=== PATIENT | male | born 1965 | race Caucasian/White ===

== ENCOUNTER 2018-01-02 04:43 | Inpatient (IN) | payer MEDICAID ==
[~2018-01-02] VITALS: Ht 172.7 cm; Wt 64.4 kg
[~2018-01-02 04:43] MED LIST: BISA10SU8 PO; FENT1PAT5 TD; OXYC-128 PO; PANT40SU PO
--- NOTE | 2018-01-02 07:30 | NUR ---
PT C/O OF COLOSTOMY BAG MALFUNCTION. PT DENIES ABD PAIN. -N/V. REPORT RECEIVED FROM ADITHYA BLANCO.
[2018-01-02] MEDS ORDERED: VANCOMYCIN 1 GM in IV D5W 250 ML IV ONE (08:30)
[2018-01-02] MEDS ORDERED: IV NS 0.9% 1,000 ML BAG IV ONE (08:30)
[2018-01-02] MEDS ORDERED: CEFTRIAXONE 1GM BAG (ER ONLY) 50 ML IV ONE (08:30)
--- NOTE | 2018-01-02 09:14 | NUR ---
EPIC PAGED ITS ANDONIAN
--- NOTE | 2018-01-02 09:31 | NUR ---
RAMA PAGED AGAIN
--- NOTE | 2018-01-02 10:15 | NUR ---
IV FLUIDS NS 1L ONCE, ROCEPHINE 1 GM IV ONCE, VANCO 1GM IV ONCE, ENDORSED TO MARIO ALBERTO, WILL INFUSED THE MEDS ONCE IV ACCESS HAS BEEN ESTABLISHED, DR RÍOS AND DR ONTIVEROS, PHARMACY MADE AWARE.
--- NOTE | 2018-01-02 10:30 | NUR ---
RN NOTES RECEIVED REPORT VIA PHONE FROM ADITHYA RENTERIA FROM ER.
[2018-01-02 11:00] VITALS: BP 108/64
[2018-01-02] MEDS ORDERED: MAGNESIUM HYDROXIDE 30 ML UDC PO PRN (11:00)
[2018-01-02] MEDS ORDERED: MAG HYDROX/AL HYDROX/SIMETH 30 ML UDC PO PRN (11:00)
[2018-01-02] MEDS ORDERED: ONDANSETRON HCL/PF 4 MG/2 ML VIAL IVP PRN (11:00)
[2018-01-02] MEDS ORDERED: HYDROCODONE/APAP 5/325MG 1 EACH TABLET PO PRN (11:00)
[2018-01-02] MEDS ORDERED: MORPHINE SULFATE INJ 2 MG/ML DISP.SYRIN IV PRN (11:00)
[2018-01-02] MEDS ORDERED: ACETAMINOPHEN 325 MG TABLET PO PRN (11:00)
[2018-01-02] MEDS ORDERED: ZOLPIDEM TARTRATE 5 MG TABLET PO PRN (11:00)
[2018-01-02] MEDS ORDERED: Z GUARD REMEDY 2 OZ OINT TP PRN (11:00)
--- NOTE | 2018-01-02 11:00 | NUR ---
APPLICATIONS PROGRAMMER RECEIVED PT. IN BED A&OX4. PT. 'S VITALS WNL. NO SOB. NO S/S OF ACUTE DISTRESS. CHANGED PT.'S COLOSTOMY BAG, WITH SKIN CARE. PT.'S BELONGING ARE AT BEDSIDE AND ON TOP OF HIS WHEELCHAIR. PT. IS PARAPLEGIC, AND DOES NOT AMBULATE. PT.'S SKIN IS PINK, AND WARM TO TOUCH. PT. HAS A SQUARE CONTAINER LABELED NORMAL SALINE THAT CONTAINS A PURPLE LIQUID INSIDE AT BEDSIDE. BELONGINGS WERE CHECKED. PT. REFUSED TO HAVE BELONGINGS CHECKED INSIDE HIS BACKPACK, AND 2 SMALL BAGS. PT. HAS A MCCARTHY CATHETER WITH 1200 CC OF PINK TINGED URINE. WILL FOLLOW UP ON MD ORDERS, AND CONTINUE TO ASSESS AND MONITOR.
[2018-01-02 11:45] VITALS: BP 108/64
[2018-01-02 11:54] LABS: BASOPHILS # (AUTO) 0.1 /CMM (0.0-0.2); BASOPHILS % (AUTO) 0.5 % (0.0-2.0); HEMATOCRIT 31 % (39-51); HEMOGLOBIN 9.7 g/dL (13.5-17.5); LYMPHOCYTES # (AUTO) 1.1 /CMM (0.8-4.8); LYMPHOCYTES % (AUTO) 6.6 % (20.0-44.0); MEAN CORPUSCULAR HEMOGLOBIN 23 PG (26.0-33.0); MEAN CORPUSCULAR HGB CONC 31 g/dl (31.0-36.0); MEAN CORPUSCULAR VOLUME 74 fL (80-96); MONOCYTES # (AUTO) 0.7 /CMM (0.1-1.30); MONOCYTES % (AUTO) 3.9 % (2.0-12.0); NEUTROPHILS # (AUTO) 14.8 /CMM (1.8-8.9); PLATELET COUNT (AUTO) 450 /CMM (150-450); RDW COEFFICIENT OF VARIATION 24.8 (11.5-15.0); RED BLOOD CELL COUNT(AUTO) 4.25 MIL/uL (4.5-6.0); WHITE BLOOD COUNT (AUTO) 16.7 K/uL (4.3-11.0)
[2018-01-02 12:03] LABS: CALCIUM, SERUM 8.2 mg/dL (8.5-10.1); CREATININE 0.6 mg/dL (0.6-1.3); POTASSIUM 3.2 mmol/L (3.5-5.1)
[2018-01-02] MEDS ORDERED: FEE PK DOSING 1 MIN EA MC ONE (12:40)
[2018-01-02] MEDS: VANCOMYCIN 1 GM in IV D5W 250 ML IV SCH ×2 (14:00→22:00)
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
--- NOTE | 2018-01-02 14:15 | NUR ---
RN NOTES PT. WAS BROUGHT WITH MCCARTHY CATHETER, PER CMCARTHY CATHETER CAN BE REPLACED. EXPLAINED TO PT. A NEW MCCARTHY NEW CATHETER NEEDS TO BE REPLACED, AND PT. REFUSED.
[2018-01-02 15:36] LABS: APPEARANCE,URINE SL CLOUDY (CLEAR); BILIRUBIN,URINE NEGATIVE (NEGATIVE); BLOOD, URINE 3+ Ery/uL (NEGATIVE); COLOR,URINE YELLOW (YELLOW); KETONES,URINE 1+ (NEGATIVE); LEUKOCYTE ESTERASE ,URINE 2+ (NEGATIVE); NITRITE, URINE NEGATIVE (NEGATIVE); PROTEIN,URINE TRACE mg/dl (NEGATIVE); UGLUCOSE NEGATIVE (NEGATIVE); UROBILINOGEN,URINE 0.2 EU/dL (0.2)
[2018-01-02 16:00] VITALS: BP 107/71
[2018-01-02 16:03] LABS: BACTERIA,URINE 4+ /HPF (None Seen); SQUAMOUS EPITHELIAL CELL,UR 0-2 /HPF (None Seen)
--- NOTE | 2018-01-02 19:30 | NUR ---
RN MS NOTES RECEIVED PATIENT IN BED ASLEEP. AROUSABLE TO TOUCH. NO DISTRESS NOTED. BREATHING EVEN AND UNLABORED. CURRENTLY WITH NO SIGNS OF PAIN OR DISCOMFORT. NO FACIAL GRIMACING. NO IV ACCESS DUE TO PATIENT REFUSING. PATIENT ALSO REFUSED VITAL SIGNS TO BE TAKEN. PATIENT SPECIFICALLY SAID, "DON'T TOUCH ME. I DON'T TRUST ANY OF YOU." INFORMED PATIENT THAT TAKING VITAL SIGNS IS NOT INVASIVE. PATIENT STILL REFUSED. WILL CONTINUE TO ASK THROUGHOUT SHIFT. ALL OTHER NEEDS ATTENDED TO. CALL LIGHT WITHIN REACH. BED ON LOWEST LOCKED POSITION. WILL CONTINUE TO MONITOR.
--- NOTE | 2018-01-02 19:55 | NUR ---
RN CLOSING NOTES PT. IS IN BED SLEEPING, EASILY AROUSABLE. NO SOB, BREATHING UNLABORED, AND EVENLY ON ROOM AIR. NO S/S OF ACUTE DISTRESS. PT. HAS NO IV ACCESS, PT. HAS BEEN REFUSING PERIPHERAL IV ACCESS, AND HAS BEEN NON COMPLIANT WITH IV MEDICATION. MD IS AWARE OF PT. REFUSING NEW IV ACCESS. BED IS IN LOWEST, AND [place] POSITION. 2 SIDE RAILS UP, CALL LIGHT WITHIN REACH. DINNER TRAY AT BEDSIDE. WILL ENDORSE REPORT TO NURSE.
--- NOTE | 2018-01-02 20:04 | NUR ---
RN NOTES PT. WAS ASKED IF HE WOULD AGREE TO HAVE HIS MCCARTHY CATHETER REPLACED PT. SAID, "YES, DON'T MAKE ME REPEAT MYSELF". ENDORSED TO NURSE PT. AGREED TO A NEW MCCARTHY CATHETER.
--- NOTE | 2018-01-02 21:00 | NUR ---
RN MS NOTES PATIENT REFUSED TO HAVE IV LINE INSERTED. MULTIPLE NURSES HAVE ATTEMPTED, INCLUDING AN ICU NURSE, BUT PATIENT WOULD BECOME COMBATIVE AND SHOUT AT EVERY ONE. PATIENT WANTS A PICC LINE INSTEAD DUE TO HIM BEING A HARD STICK BUT DR. KAPADIA DOES NOT WANT TO BECAUSE OF HIS HISTORY OF SUBSTANCE ABUSE AND LEAVING AMA.
--- NOTE | 2018-01-02 21:19 | NUR ---
RN MS NOTES WENT TO PATIENT'S ROOM TO ATTEMPT INSERTING A MCCARTHY CATH IN SINCE PATIENT AGREED WITH THE DAY NURSE TO HAVE HIS CURRENT MCCARTHY CATH REPLACED. PATIENT REFUSED TO BE TOUCHED. REMINDED HIM THAT HE AGREED WITH THE DAY NURSE FOR A NEW ONE TO BE PLACED, BUT DENIES SAYING THAT. ASKED PATIENT AGAIN WELL INFORMED HIM THE RISKS AND BENEFITS BUT PATIENT STATED "DON'T F TOUCH ME, I DON'T TRUST YOU." OFFERED TO HAVE ANOTHER NURSE INSERT A MCCARTHY CATH BUT STILL REFUSED. CHARGED NURSE MADE AWARE.
--- NOTE | 2018-01-02 21:30 | NUR ---
RN MS NOTES PATIENT REFUSED TO HAVE WOUNDS PICTURED. EXPLAINED TO PATIENT THE PURPOSE OF THE PICTURES BUT STILL REFUSED. PER PATIENT "HE DOESN'T NEED IT". WILL CONTINUE TO MONITOR. WOUND CARE CONSULT STILL IN PLACE.
--- NOTE | 2018-01-02 23:09 | NUR ---
RN MS NOTES PATIENT REQUESTED FOR PAIN MEDICATION. INFORMED PATIENT THAT I ONLY HAVE MORPHINE IV OR NORCO. INFORMED PATIENT THAT I CANNOT GIVE HIM MORPHINE BECAUSE HE IS REFUSING IV INSERTION, BUT I VERIFIED WITH PATIENT WHAT KIND OF ALLERGY REACTION HE GETS FROM ACETAMINOPHEN. PER PATIENT, "IT MAKES HIM SICK, AND TOXIFIES HIS LIVER." ASKED PATIENT IF HE EXPERIENCES ANY RASHES, SWELLING, OR SOB, BUT PATIENT BECAME ANGRY AND SHOUTED "WHAT DON'T YOU UNDERSTAND." INFORMED PATIENT THAT I AM TRYING TO GET HIM NORCO TO AID HIS PAIN BUT I NEED TO VERIFY HIS ALLERGIES FIRST, BUT PER PATIENT, HE SAID HE DOESNT NEED IT ANYMORE AND TO LEAVE HIM ALONE.
--- NOTE | 2018-01-03 02:30 | NUR ---
RN MS NOTES PATIENT REQUEST FOR NORCO DUE TO HIS PAIN ON HIS UPPER BACK. INFORMED PATIENT THAT HE IS ALLERGIC TO ACETAMINOPHEN, WHICH HE STATED MAKES HIM SICK AND TOXFIES HIS LIVER. PATIENT DENIED SAYING THAT. INFORMED PATIENT THAT HE REPORTED HIS ALLERGIES WHEN HE GOT TO THE ER WELL EARLIER DURING THE NIGHT. PATIENT STILL DENIES. ASKED PATIENT IF HE GETS ANY ALLERGIES WHEN HE TAKES ACETAMINOPHEN, PER PATIENT HE DOES NOT. PATIENT ALSO STATED THAT HE'S RECEIVED THE MEDICATION BEFORE AND HE DID NOT HAVE ANY ALLERGIC REACTION. INFORMED PATIENT THAT I WILL CALL THE DOCTOR FOR APPROVAL. PAGED DR. NETTIE WHITING AND INFORMED HIM ABOUT THE SITUATION. PER DR. NETTIE WHITING, OK TO GIVE THE NORCO. CALLED PHARMACY AND SPOKE WITH JAIRON. INFORMED JAIRON THAT DR. WHITING APPROVED NORCO. PER JAIRON, SHE WILL VERIFY THE NORCO FOR DISPENSING.
--- NOTE | 2018-01-03 02:44 | NUR ---
RN MS NOTES NORCO 5-325MG GIVEN DUE TO UPPER BODY PAIN SPECIFICALLY IN BETWEEN HIS BLADES 10/10 ON A PAIN SCALES. WILL MONITOR FOR ANY ALLERGIC REACTION.
[2018-01-03] MEDS: VANCOMYCIN 1 GM in IV D5W 250 ML IV SCH (06:00)
--- NOTE | 2018-01-03 06:41 | NUR ---
RN MS NOTES PATIENT AGREED TO HAVE A NEW MCCARTHY CATH IN . NEW MCCARTHY INSERTED #16F. INTACT AND DRAINING WELL.
--- NOTE | 2018-01-03 06:43 | NUR ---
RN MS NOTES UNABLE TO ADMINISTER IV ATB DUE TO PATIENT REFUSING IV INSERTION.
--- NOTE | 2018-01-03 06:52 | NUR ---
RN MS CLOSING NOTES PATIENT IN BED AWAKE. NO DISTRESS NOTED. BREATHING EVEN AND UNLABORED. CURRENTLY WITH NO SIGNS OF PAIN OR DISCOMFORT. NO FACIAL GRIMACING. NO IV ACCESS DUE TO PATIENT REFUSING. NEW MCCARTHY CATH INTACT AND PATENT. ALL OTHER NEEDS ATTENDED TO. CALL LIGHT WITHIN REACH. BED ON LOWEST LOCKED POSITION. WILL ENDORSE TO ONCOMING NURSE FOR CONTINUITY OF CARE.
--- NOTE | 2018-01-03 07:20 | NUR ---
ms rn initial notes Received patient in bed, awake, head of bed elevated, no SOB noted, on room air. Alert and oriented x 3, verbally responsive and able to make needs known. No IV access due to patient refusal, tried to convince patient to start an IV access and still refuses, explained the risk and benefits x 3, and still refused. per patient "I don't take IV's anymore, IV ATB makes me sick". Patient verbalized that he want's to leave against medical advice. Call light with in patient reach, will continue to monitor and will inform MD.
--- NOTE | 2018-01-03 09:30 | NUR ---
ms tessa AMA notes Michel NUT BLANKER OPERATOR came seen and examined the patient and patient verbalized that he want's to leave against medical advice, Michel NUT BLANKER OPERATOR explained the risk and benefits x 3 and still refused. Tried to encourage patient to stay for ATB treatment and patient said "I want to leave now, let me just finish changing my colostomy bag, and get my shit together and I will go straight to [facility] to there spine center and change this Beckham out, I want the latex one". Patient refused IV insertion and ATB, also explained the benefits of IV ATB, per patient "I do not want any IV ATB, I just want to clean my wound everyday and that's it". Patient signed AMA form and escorted patient to the lobby via wheelchair. [place] still in placed. and charge nurse aware.
--- NOTE | 2018-01-03 09:32 | NUR ---
Social service consult requested by LIONEL Pearson for community resources and homelessness. Pt. is a 52 year old male who was admitted to [facility] for colostomy malfunction. [facility] met with pt. bedside this morning since pt. is going AMA. Pt. is alert and oriented x 4. Pt. appears disheveled and is hostile. Pt. is a paraplegic. Pt. went AMA from [facility] and came to [facility]. SW recognized pt. from previous admissions and pt. is using an alias name during this admission. Pt. is an IV drug user and was adamant of getting a pic line and since he didn't need one and was declined, pt. decided to go AMA. Pt. is non-compliant with his plan of care. [facility] offered pt. homeless nursing home resources and other community resources such as food graham, community health clinics, however, pt. declined stating, " I am going to another hospital where there will provide me with a pic line." Pt. was given a pair of pants and shirt. No other social service needs are requested at this times. SW is available, if needed.
== END 2018-01-03 09:30 | disposition left against medical advice (07) | DRG 252 ==
LOC: ER 04:46 → MED 08:55
PROVIDERS: ADMIT Family Medicine; ATTEND Family Medicine
DX: K94.03 Colostomy malfunction (principal); G82.50 Quadriplegia, unspecified; L89.159 Pressure ulcer of sacral region, unspecified stage; Y83.3 Surgical operation with formation of external stoma as the cause of abnormal reaction of the patient, or of later complication, without mention of misadventure at the time of the procedure; Y82.9 Unspecified medical devices associated with adverse incidents; Y92.129 Unspecified place in nursing home as the place of occurrence of the external cause; Z98.1 Arthrodesis status; Z82.49 Family history of ischemic heart disease and other diseases of the circulatory system; Z99.3 Dependence on wheelchair; Z59.0 Homelessness; Z88.6 Allergy status to analgesic agent; Z88.4 Allergy status to anesthetic agent; Z88.8 Allergy status to other drugs, medicaments and biological substances; Z72.0 Tobacco use; F19.90 Other psychoactive substance use, unspecified, uncomplicated; L89.90 Pressure ulcer of unspecified site, unspecified stage; M86.9 Osteomyelitis, unspecified
CPT/HCPCS: 36415; 80048-TC; 81000-TC; 83605-TC; 85025-TC; 87040-TC; 87070-TC; 87081-TC; 87086-TC; 87186-TC; A4606; A6253; A6402; A6403; J0696; J3370; J7060; Z7610

== ENCOUNTER 2018-01-04 21:37 | Emergency (ER) | payer MEDICAID ==
[~2018-01-04] VITALS: Ht 165.1 cm; Wt 68.0 kg
[2018-01-04 21:43] VITALS: BP 113/65
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
== END 2018-01-04 23:19 | disposition home or self-care (01) ==
LOC: ER 21:39
DX: G89.4 Chronic pain syndrome (principal); M79.1 Myalgia; Z76.5 Malingerer [conscious simulation]; F17.200 Nicotine dependence, unspecified, uncomplicated; Z43.3 Encounter for attention to colostomy; Z98.890 Other specified postprocedural states; Z88.6 Allergy status to analgesic agent; Z88.8 Allergy status to other drugs, medicaments and biological substances; Z79.899 Other long term (current) drug therapy; V03.99XA Pedestrian with other conveyance injured in collision with car, pick-up truck or van, unspecified whether traffic or nontraffic accident, initial encounter; Y93.89 Activity, other specified; Y92.89 Other specified places as the place of occurrence of the external cause; Y99.8 Other external cause status
CPT/HCPCS: A4606; Z7610

== ENCOUNTER 2018-01-06 08:30 | Inpatient (IN) | payer MEDICAID ==
[~2018-01-06] VITALS: Ht 185.4 cm; Wt 74.8 kg
[2018-01-06] MEDS ORDERED: IV NS 0.9% 1,000 ML BAG IV ONE (09:00)
[2018-01-06 09:19] LABS: HEMATOCRIT 35 % (39-51); HEMOGLOBIN 10.8 g/dL (13.5-17.5); MEAN CORPUSCULAR HEMOGLOBIN 22 PG (26.0-33.0); MEAN CORPUSCULAR HGB CONC 31 g/dl (31.0-36.0); MEAN CORPUSCULAR VOLUME 73 fL (80-96); PLATELET COUNT (AUTO) 492 /CMM (150-450); RDW COEFFICIENT OF VARIATION 25.1 (11.5-15.0); RED BLOOD CELL COUNT(AUTO) 4.81 MIL/uL (4.5-6.0); WHITE BLOOD COUNT (AUTO) 13.4 K/uL (4.3-11.0)
[2018-01-06 09:21] LABS: APPEARANCE,URINE CLOUDY (CLEAR); BILIRUBIN,URINE NEGATIVE (NEGATIVE); BLOOD, URINE 3+ Ery/uL (NEGATIVE); COLOR,URINE YELLOW (YELLOW); KETONES,URINE TRACE (NEGATIVE); LEUKOCYTE ESTERASE ,URINE 2+ (NEGATIVE); NITRITE, URINE POSITIVE (NEGATIVE); PH,URINE 6.5 (5.0-8.0); PROTEIN,URINE 1+ mg/dl (NEGATIVE); UGLUCOSE NEGATIVE (NEGATIVE)
[2018-01-06 09:36] LABS: CALCIUM, SERUM 7.9 mg/dL (8.5-10.1); CREATININE 0.5 mg/dL (0.6-1.3); POTASSIUM 3.3 mmol/L (3.5-5.1)
[2018-01-06 09:43] LABS: ALBUMIN 1.7 g/dL (3.4-5.0); BILIRUBIN,DIRECT 0.1 mg/dL (0.0-0.2); BILIRUBIN,TOTAL 0.2 mg/dL (0.2-1.0); TOTAL PROTEIN, SERUM 9.4 g/dL (6.4-8.2)
[2018-01-06 10:17] LABS: BACTERIA,URINE Many /HPF (None Seen); RBC,URINE 21-50 /HPF (0-2); SQUAMOUS EPITHELIAL CELL,UR Moderate /HPF (None Seen)
[2018-01-06 10:18] LABS: URINE AMORPHOUS URATE Moderate /HPF (None Seen)
[2018-01-06 10:22] LABS: LYMPHOCYTES % (MANUAL) 7 % (16-48); MONOCYTES % (MANUAL) 9 % (0-11.0); NEUTROPHILS % (MANUAL) 84 (42-76)
[2018-01-06] MEDS ORDERED: PIPERACILLIN /TAZOBACTAM 3.375 G in IV D5W 50 ML IV ONE (10:30)
[2018-01-06] MEDS ORDERED: POTASSIUM CL. PREMIX PERIPHER. 50 ML ONE ×2 (10:55→11:38)
[2018-01-06] MEDS: POTASSIUM CL. PREMIX PERIPHER. 50 ML IV SCH ×2 (10:59→12:00)
[2018-01-06 13:40] VITALS: BP 118/82
[2018-01-06] MEDS ORDERED: LORAZEPAM INJ 2 MG/ML VIAL IV STA (14:59)
[2018-01-06] MEDS ORDERED: ZOLPIDEM TARTRATE 5 MG TABLET PO PRN (16:00)
[2018-01-06] MEDS ORDERED: IV NS 0.9% 1,000 ML IV PRN (16:00)
[2018-01-06] MEDS ORDERED: ONDANSETRON HCL/PF 4 MG/2 ML VIAL IVP PRN (16:00)
[2018-01-06] MEDS ORDERED: ACETAMINOPHEN 325 MG TABLET PO PRN (16:00)
[2018-01-06] MEDS ORDERED: MAGNESIUM HYDROXIDE 30 ML UDC PO PRN (16:00)
[2018-01-06] MEDS ORDERED: LORAZEPAM INJ 2 MG/ML VIAL IV PRN (16:00)
[2018-01-06] MEDS ORDERED: POTASSIUM CHLORIDE 20 MEQ TAB.PRT.SR PO SCH (16:00)
[2018-01-06] MEDS ORDERED: PIPERACILLIN /TAZOBACTAM 3.375 G in IV D5W 50 ML IV SCH (18:00)
[2018-01-07] MEDS ORDERED: FOLIC ACID 1 MG TABLET PO SCH (09:00)
[2018-01-07] MEDS ORDERED: NICOTINE PATCH (14MG) 14 MG PATCH.TD24 TD SCH (09:00)
[2018-01-07] MEDS ORDERED: THIAMINE HCL 100 MG TABLET PO SCH (09:00)
[2018-01-07] MEDS ORDERED: MULTIVITAMINS,THERAGRAN 1 UDTAB TABLET PO SCH (09:00)
== END 2018-01-06 18:03 | disposition left against medical advice (07) | DRG 463 ==
LOC: ER 08:33 → TELE1 13:12 → MEDSG1 14:51
PROVIDERS: ADMIT Nurse Practitioner Acute Care; ATTEND Nurse Practitioner Acute Care
DX: N39.0 Urinary tract infection, site not specified (principal); E43 Unspecified severe protein-calorie malnutrition; G93.41 Metabolic encephalopathy; E87.2 Acidosis; D50.9 Iron deficiency anemia, unspecified; F17.210 Nicotine dependence, cigarettes, uncomplicated; D72.829 Elevated white blood cell count, unspecified; F10.239 Alcohol dependence with withdrawal, unspecified; R74.0 Nonspecific elevation of levels of transaminase and lactic acid dehydrogenase [LDH]; E87.6 Hypokalemia; Z99.3 Dependence on wheelchair; Z93.3 Colostomy status; Z59.0 Homelessness; Z68.21 Body mass index [BMI] 21.0-21.9, adult; F29 Unspecified psychosis not due to a substance or known physiological condition
CPT/HCPCS: 36415; 70450-TC; 71045-TC; 80048-TC; 80076-TC; 80305; 81000-TC; 83735-TC; 85025-TC; 87081-TC; 87086-TC; 87186-TC; A4606; A6403; G0480; J2060; J2543; J3480; J7030; J7060; Z7610